=== PATIENT | female | born 1995 | race American Indian/Alaskan Native ===

== ENCOUNTER 2017-04-14 07:19 | Emergency (ER) | payer SELFPAY ==
[2017-04-14 08:04] VITALS: BP 124/73
[2017-04-14 08:40] LABS: Basophils # (Auto) 0.1 K/mm3 (0.0-0.1); Basophils % (Auto) 1.4 % (0.0-1.8); Eosinophils # (Auto) 0.1 K/mm3 (0.0-0.4); Eosinophils % (Auto) 1.3 % (0.0-4.3); Hematocrit 38.8 % (30.3-42.9); Hemoglobin 13.2 gm/dl (10.1-14.3); Lymphocytes # (Auto) 2.7 K/mm3 (1.2-5.4); Lymphocytes % (Auto) 32.4 % (13.4-35.0); Mean Corpuscular HGB Conc 34 % (30-34); Mean Corpuscular Hemoglobin 30 pg (28-32); Mean Corpuscular Volume 87 fl (79-97); Monocytes # (Auto) 0.5 K/mm3 (0.0-0.8); Platelet Count 344 K/mm3 (140-440); Red Blood Count 4.45 M/mm3 (3.65-5.03); Red Cell Distribution Width 13.3 % (13.2-15.2)
[2017-04-14 08:42] LABS: Alanine Aminotransferase 15 units/L (7-56); Albumin 4.5 g/dL (3.9-5); BUN/Creatinine Ratio 24; Blood Urea Nitrogen 12 mg/dL (7-17); Hemolysis Index 6; Lipase 29 units/L (13-60)
[2017-04-14 09:08] LABS: Bilirubin,Urine NEG (Negative); Blood,Urine NEG (Negative); Color,Urine Yellow (Yellow); Mucus,Urine 1+ /HPF; Nitrite,Urine NEG (Negative); Protein,Urine <15 mg/dL mg/dL (Negative); Urobilinogen,Urine < 2.0 mg/dL (<2.0)
[2017-04-14 09:12] LABS: HCG Qualitative,Urine Negative (Negative)
[2017-04-14] MEDS ORDERED: VIBRAMYCIN PO ONE (09:20)
[2017-04-14] MEDS ORDERED: TORADOL IV ONE (09:20)
--- NOTE | 2017-04-14 09:22 | Emergency Department Report ---
ED General Adult HPI - General Chief complaint: Abdominal Pain Stated complaint: ABD PAIN Time Seen by Provider: 04/14/17 09:02 Source: patient Mode of arrival: Ambulatory Limitations: No Limitations - History of Present Illness Initial comments: This is a 21-year-old female who was previously unknown to this provider, patient denies chronic medical conditions, presents to the ER with complaint of lower abdominal pain and cramping. No right lower quadrant pain, no fevers or chills, no urinary symptoms. Her pain does not have exacerbating or relieving factors. It does not radiate anywhere. -: Gradual, days(s) Location: abdomen Radiation: non-radiation Improves with: none Worsens with: none Associated Symptoms: denies: confusion, chest pain, cough, diaphoresis, fever/ chills, headaches, loss of appetite, malaise, nausea/vomiting, rash, shortness of breath, syncope, weakness - Related Data Previous Rx's Medication Instructions Recorded Last Taken Type Acetaminophen [Tylenol Arthritis] 650 mg PO Q6HR PRN #30 tablet.er 04/14/17 Unknown Rx Doxycycline [Vibramycin] 100 mg PO Q12HR #28 capsule 04/14/17 Unknown Rx Ibuprofen [Motrin] 600 mg PO Q8H PRN #30 tablet 04/14/17 Unknown Rx Ondansetron [Zofran Odt] 4 mg PO Q8HR PRN #20 tab.rapdis 04/14/17 Unknown Rx Allergies Allergy/AdvReac Type Severity Reaction Status Date / Time No Known Allergies Allergy Unverified 04/14/17 08:00 ED Review of Systems ROS: Stated complaint: ABD PAIN Other details as noted in HPI ED Past Medical Hx - Past Medical History Previous Medical History?: Yes Additional medical history: abnormal menses, Abd pain and distention - Surgical History Past Surgical History?: No - Social History Smoking Status: Never Smoker Substance Use Type: Non Opiate Pain - Medications Home Medications: Home Medications Medication Instructions Recorded Confirmed Last Taken Type Acetaminophen [Tylenol Arthritis] 650 mg PO Q6HR PRN #30 tablet.er 04/14/17 Unknown Rx Doxycycline [Vibramycin] 100 mg PO Q12HR #28 capsule 04/14/17 Unknown Rx Ibuprofen [Motrin] 600 mg PO Q8H PRN #30 tablet 04/14/17 Unknown Rx Ondansetron [Zofran Odt] 4 mg PO Q8HR PRN #20 tab.rapdis 04/14/17 Unknown Rx ED Physical Exam - General Limitations: No Limitations General appearance: alert, in no apparent distress - Head Head exam: Present: atraumatic, normocephalic - Eye Eye exam: Present: normal appearance, EOMI. Absent: nystagmus - ENT ENT exam: Present: normal exam, normal orophraynx, mucous membranes moist, normal external ear exam - Neck Neck exam: Present: normal inspection, full ROM - Respiratory Respiratory exam: Present: normal lung sounds bilaterally. Absent: respiratory distress - Cardiovascular Cardiovascular Exam: Present: regular rate, normal rhythm, normal heart sounds. Absent: systolic murmur, diastolic murmur, rubs, gallop - GI/Abdominal GI/Abdominal exam: Present: soft, normal bowel sounds. Absent: distended, tenderness, guarding, rebound, rigid, pulsatile mass - External exam: Present: normal external exam Speculum exam: Present: normal speculum exam. Absent: cervical discharge, vaginal bleeding Bi-manual exam: Present: normal bi-manual exam, other (escorted by nurse Steffen Kebede). Absent: cervical motion tendernes, adnexal tenderness, adnexal mass, uterine enlargement, uterine tenderness - Extremities Exam Extremities exam: Present: normal inspection, full ROM, normal capillary refill. Absent: tenderness, pedal edema, joint swelling, calf tenderness - Back Exam Back exam: Present: normal inspection, full ROM. Absent: tenderness, CVA tenderness (R), paraspinal tenderness, vertebral tenderness - Neurological Exam Neurological exam: Present: alert, oriented X3, CN II-XII intact, normal gait, other (Extraocular movements intact. Tongue midline. No facial droop. Facial sensation intact to light touch in the V1, V2, V3 distribution bilaterally. 5 and 5 strength in 4 extremities.. Sensation is intact to light touch in 4 extremities.). Absent: motor sensory deficit - Psychiatric Psychiatric exam: Present: normal affect, normal mood - Skin Skin exam: Present: warm, dry, intact, normal color. Absent: rash ED Course Vital Signs 04/14/17 04/14/17 08:00 10:43 Temperature 98.2 F Pulse Rate 71 Respiratory 20 20 Rate Blood Pressure 124/73 O2 Sat by Pulse 100 Oximetry ED Medical Decision Making - Lab Data Result diagrams: 04/14/17 08:10 04/14/17 08:10 Vital Signs 04/14/17 04/14/17 08:00 10:43 Temperature 98.2 F Pulse Rate 71 Respiratory 20 20 Rate Blood Pressure 124/73 O2 Sat by Pulse 100 Oximetry Labs 04/14/17 04/14/17 04/14/17 08:10 08:10 08:11 WBC 8.2 RBC 4.45 Hgb 13.2 Hct 38.8 MCV 87 MCH 30 MCHC 34 RDW 13.3 Plt Count 344 Lymph % (Auto) 32.4 [place] % (Auto) 6.0 Eos % (Auto) 1.3 Baso % (Auto) 1.4 Lymph # 2.7 [place] # 0.5 Eos # 0.1 Baso # 0.1 Seg Neutrophils % 58.9 Seg Neutrophils # 4.8 Sodium 139 Potassium 4.0 Chloride 101.0 Carbon Dioxide 25 Anion Gap 17 BUN 12 Creatinine 0.5 L Estimated GFR > 60 BUN/Creatinine Ratio 24 Glucose 87 Calcium 9.0 Total Bilirubin 0.30 AST 17 ALT 15 Alkaline Phosphatase 52 Total Protein 8.0 Albumin 4.5 Albumin/Globulin Ratio 1.3 Lipase 29 Urine Color Yellow Urine Turbidity Cloudy Urine pH 5.0 Ur Specific [place] 1.031 H Urine Protein <15 mg/dl Urine Glucose (UA) >=500 Urine Ketones 20 Urine Blood Neg Urine Nitrite Neg Urine Bilirubin Neg Urine Urobilinogen < 2.0 Ur Leukocyte Esterase Tr Urine WBC (Auto) 22.0 H Urine RBC (Auto) 1.0 U Epithel Cells (Auto) 6.0 Urine Mucus 1+ Urine HCG, Qual Negative - Radiology Data Radiology results: report reviewed, image reviewed Referring Physician: NICK COLON Patient Name: BEN DEVRIES Date of : 1995 Sex: Female Report Date: 2017-04-14 Report Status: Finalized Findings [facility] [address] [place] [address] Ultrasound Report Signed Patient: BEN DEVRIES MR#: [id number] : 1995 Acct:[id number] Age/Sex: 21 / F ADM Date: 04/14/17 Loc: ED Attending Dr: Ordering Physician: NICK COLON MD Date of Service: 04/14/17 Procedure(s): US pelvis duplex doppler comp Accession Number(s): [id number] cc: NICK COLON MD ULTRASOUND PELVIS DUPLEX DOPPLER COMPLETE ULTRASOUND TRANSVAGINAL HISTORY: Pelvic pain. COMPARISON: None. TECHNIQUE: Transabdominal and transvaginal ultrasound with color doppler interrogation. FINDINGS: Uterus: The uterus is retroflexed and measures 6.7 x 3.6 x 4.2 cm. No uterine mass or fibroid disease. Endometrium: Homogeneous. 11 mm. Right ovary: 3.5 x 1.7 x 3.8 cm. Normal follicles are identified. Left ovary: 3.7 x 1.6 x 3.1 cm. Normal follicles are identified. Spectral waveforms demonstrate arterial flow to both ovaries. There is a mild degree of fluid in the cul-de-sac which is probably physiologic. IMPRESSION: Unremarkable transabdominal and transvaginal pelvic ultrasounds. Small pelvic ascites. Transcribed By: TTR Dictated By: ADRIANA ROBB JR, MD Electronically Authenticated By: ADRIANA ROBB JR, MD Signed Date/Time: 04/14/17 1013 DD/ 1011 TD/TT: 04/14/17 1013 - Medical Decision Making Differential diagnosis, including but not limited to: Pelvic inflammatory disease, constipation, urinary tract infection Assessment and plan: 21-year-old female with a complaint of bilateral lower abdominal cramping, poorly defecating normally, passing gas normally, I appreciate that the patient has no cervical motion tenderness or adnexal tenderness, and she does not endorse irritative or obstructive urinary symptoms. Her urinalysis demonstrates trace leukocyte esterase, and 22 white blood cells without significant bacteria, this may suggest a chlamydia cystitis. The patient is afebrile with reassuring vital signs, and has no right lower quadrant tenderness, rebound or guarding. Her ultrasound did not demonstrate any significant gynecologic disease that would require emergent surgical intervention. The patient will be treated empirically for chlamydia cystitis and pelvic inflammatory disease. Return precautions are reviewed. Critical care attestation.: If time is entered above; I have spent that time in minutes in the direct care of this critically ill patient, excluding procedure time. ED Disposition Clinical Impression: Lower abdominal pain Disposition: - TO HOME OR SELFCARE Is pt being admited?: No Does the pt Need Aspirin: No Condition: Stable Instructions: Pelvic Inflammatory Disease (ED) Additional Instructions: As we discussed, your laboratory studies appeared to be within normal limits. Urinalysis suggested chlamydia infection You are not . The addition, your pelvic ultrasound was within normal limits. Given all this, you'll be treated empirically for disease called pelvic inflammatory disease. We typically treat young females with unexplained lower abdominal pain to protect your ability to have children safely in the future. Cultures were sent today, and results will be available next 3-5 days. Please have your primary care doctor call the medical records department to obtain your culture results. Take the antibiotic therapy as directed. Take the nausea medication and pain medication as directed. I recommend outpatient testing for sexually transmitted diseases, including hepatitis, syphilis and HIV. I also recommend that you abstain from sexual activity until you have completed her antibiotic therapy, a physician states that it is safe for you to resume sexual activity, and any partners that you have been sexually active with have been tested/treated/evaluated for sexual transmitted diseases. Please follow-up with physician within 3-5 days. I recommend that you return to the ER right away with worsening pain, migration of pain, intractable nausea/vomiting, inability tolerate liquid feeds. Prescriptions: Acetaminophen [Tylenol Arthritis] 650 mg PO Q6HR PRN #30 tablet.er PRN Reason: Pain Doxycycline [Vibramycin] 100 mg PO Q12HR #28 capsule Ibuprofen [Motrin] 600 mg PO Q8H PRN #30 tablet PRN Reason: Pain Ondansetron [Zofran Odt] 4 mg PO Q8HR PRN #20 tab.rapdis PRN Reason: Nausea Referrals: [facility] [Primary Care Provider] - 3-5 Days [facility] [Provider Group] - 3-5 Days [facility] [Provider Group] - 3-5 Days [facility] [Provider Group] - 3-5 Days [facility] Days
[2017-04-14] MEDS ORDERED: cefTRIAXone 0.25 GM in NACL 0.9% 20 ML IV SCH (09:30)
--- NOTE | 2017-04-14 10:18 | Ultrasound Report ---
ULTRASOUND PELVIS DUPLEX DOPPLER COMPLETE ULTRASOUND TRANSVAGINAL HISTORY: Pelvic pain. COMPARISON: None. TECHNIQUE: Transabdominal and transvaginal ultrasound with color doppler interrogation. FINDINGS: Uterus: The uterus is retroflexed and measures 6.7 x 3.6 x 4.2 cm. No uterine mass or fibroid disease. Endometrium: Homogeneous. 11 mm. Right ovary: 3.5 x 1.7 x 3.8 cm. Normal follicles are identified. Left ovary: 3.7 x 1.6 x 3.1 cm. Normal follicles are identified. Spectral waveforms demonstrate arterial flow to both ovaries. There is a mild degree of fluid in the cul-de-sac which is probably physiologic. IMPRESSION: Unremarkable transabdominal and transvaginal pelvic ultrasounds. Small pelvic ascites.
== END 2017-04-14 11:27 | disposition home or self-care (01) ==
LOC: ED 07:19
DX: R10.30 Lower abdominal pain, unspecified (principal)
CPT/HCPCS: 36415; 76830; 80053; 81001; 81025; 83690; 85025; 87086; 87210; 87591; 93975; 96374; 96375; 99285; J0696; J1885

== ENCOUNTER 2017-06-16 17:25 | Emergency (ER) | payer SELFPAY ==
[2017-06-16 19:02] LABS: Basophils # (Auto) 0.1 K/mm3 (0.0-0.1); Basophils % (Auto) 0.7 % (0.0-1.8); Eosinophils # (Auto) 0.1 K/mm3 (0.0-0.4); Eosinophils % (Auto) 0.4 % (0.0-4.3); Hematocrit 39.9 % (30.3-42.9); Lymphocytes # (Auto) 2.5 K/mm3 (1.2-5.4); Lymphocytes % (Auto) 20.8 % (13.4-35.0); Mean Corpuscular HGB Conc 33 % (30-34); Mean Corpuscular Hemoglobin 29 pg (28-32); Mean Corpuscular Volume 88 fl (79-97); Monocytes # (Auto) 0.7 K/mm3 (0.0-0.8); Monocytes % (Auto) 5.9 % (0.0-7.3); Platelet Count 373 K/mm3 (140-440); Red Blood Count 4.56 M/mm3 (3.65-5.03); Red Cell Distribution Width 13.4 % (13.2-15.2)
[2017-06-16 19:11] LABS: BUN/Creatinine Ratio 22; Blood Urea Nitrogen 11 mg/dL (7-17); Calcium 9.7 mg/dL (8.4-10.2); Hemolysis Index 7
[2017-06-16] MEDS ORDERED: TYLENOL ONE (19:15)
[2017-06-16] MEDS ORDERED: TYLENOL PO ONE (19:17)
[2017-06-16 20:17] LABS: HCG Qualitative,Urine Negative (Negative)
[2017-06-16 20:25] LABS: Bilirubin,Urine NEG (Negative); Blood,Urine NEG (Negative); Color,Urine Yellow (Yellow); Mucus,Urine 3+ /HPF; Protein,Urine <15 mg/dL mg/dL (Negative); Urobilinogen,Urine < 2.0 mg/dL (<2.0)
--- NOTE | 2017-06-16 21:05 | Emergency Department Report ---
- General Chief complaint: Rectal Pain Stated complaint: LOW BACK PAIN, TOP OF BUTT Time Seen by Provider: 06/16/17 20:48 Source: patient Mode of arrival: Ambulatory Limitations: No Limitations - History of Present Illness Initial comments: 21-year-old female past medical history pilonidal abscess presents with complaint of 2 days of pilonidal abscess recurrence. Patient denies fever chills difficulty defecating nausea vomiting or abdominal pain. States the pain is a top of her lateral left buttock. States she has a palpable bump there. Patient is awake alert and oriented 3 and states that her buttocks is aching. Accompanied by boyfriend at bedside complaint: abscess/boil Onset/Timin -: days(s) Location: buttocks (left upper) Severity: moderate Quality: aching Consistency: intermittent Improves with: none Context: none Treatments Prior to Arrival: none - Related Data Previous Rx's Medication Instructions Recorded Last Taken Type Acetaminophen [Tylenol Arthritis] 650 mg PO Q6HR PRN #30 tablet.er 04/14/17 Unknown Rx Doxycycline [Vibramycin] 100 mg PO Q12HR #28 capsule 04/14/17 Unknown Rx Ibuprofen [Motrin] 600 mg PO Q8H PRN #30 tablet 04/14/17 Unknown Rx Ondansetron [Zofran Odt] 4 mg PO Q8HR PRN #20 tab.rapdis 04/14/17 Unknown Rx Acetaminophen/Codeine [Tylenol 1 tab PO Q6H PRN #8 tab 06/16/17 Unknown Rx /Codeine # 3 tab] Cephalexin [Keflex] 500 mg PO BID #14 capsule 06/16/17 Unknown Rx Ibuprofen [Motrin] 600 mg PO Q8H PRN #20 tablet 06/16/17 Unknown Rx Sulfamethoxazole/Trimethoprim 1 each PO BID #14 tablet 06/16/17 Unknown Rx [Bactrim DS TAB] Allergies Allergy/AdvReac Type Severity Reaction Status Date / Time No Known Allergies Allergy Unverified 04/14/17 08:00 Abscess Boil HPI - HPI Chief Complaint: Rectal Pain Stated Complaint: LOW BACK PAIN, TOP OF BUTT Time Seen by Provider: 06/16/17 20:48 Home Medications: Previous Rx's Medication Instructions Recorded Last Taken Type Acetaminophen [Tylenol Arthritis] 650 mg PO Q6HR PRN #30 tablet.er 04/14/17 Unknown Rx Doxycycline [Vibramycin] 100 mg PO Q12HR #28 capsule 04/14/17 Unknown Rx Ibuprofen [Motrin] 600 mg PO Q8H PRN #30 tablet 04/14/17 Unknown Rx Ondansetron [Zofran Odt] 4 mg PO Q8HR PRN #20 tab.rapdis 04/14/17 Unknown Rx Acetaminophen/Codeine [Tylenol 1 tab PO Q6H PRN #8 tab 06/16/17 Unknown Rx /Codeine # 3 tab] Cephalexin [Keflex] 500 mg PO BID #14 capsule 06/16/17 Unknown Rx Ibuprofen [Motrin] 600 mg PO Q8H PRN #20 tablet 06/16/17 Unknown Rx Sulfamethoxazole/Trimethoprim 1 each PO BID #14 tablet 06/16/17 Unknown Rx [Bactrim DS TAB] Allergies/Adverse Reactions: Allergies Allergy/AdvReac Type Severity Reaction Status Date / Time No Known Allergies Allergy Unverified 04/14/17 08:00 ED Review of Systems ROS: Stated complaint: LOW BACK PAIN, TOP OF BUTT Other details as noted in HPI Constitutional: denies: chills, fever Eyes: denies: eye pain, eye discharge, vision change ENT: denies: ear pain, throat pain Respiratory: denies: cough, shortness of breath, wheezing Cardiovascular: denies: chest pain, palpitations Endocrine: no symptoms reported Gastrointestinal: denies: abdominal pain, nausea, diarrhea Genitourinary: denies: urgency, dysuria, discharge Musculoskeletal: denies: back pain, joint swelling, arthralgia Skin: as per HPI (abscess in pilonidal region). denies: rash, lesions Neurological: denies: headache, weakness, paresthesias Psychiatric: denies: anxiety, depression Hematological/Lymphatic: denies: easy bleeding, easy bruising ED Past Medical Hx - Past Medical History Additional medical history: abnormal menses, Abd pain and distention - Surgical History Past Surgical History?: No - Social History Smoking Status: Never Smoker - Medications Home Medications: Home Medications Medication Instructions Recorded Confirmed Last Taken Type Acetaminophen [Tylenol Arthritis] 650 mg PO Q6HR PRN #30 tablet.er 04/14/17 Unknown Rx Doxycycline [Vibramycin] 100 mg PO Q12HR #28 capsule 04/14/17 Unknown Rx Ibuprofen [Motrin] 600 mg PO Q8H PRN #30 tablet 04/14/17 Unknown Rx Ondansetron [Zofran Odt] 4 mg PO Q8HR PRN #20 tab.rapdis 04/14/17 Unknown Rx Acetaminophen/Codeine [Tylenol 1 tab PO Q6H PRN #8 tab 06/16/17 Unknown Rx /Codeine # 3 tab] Cephalexin [Keflex] 500 mg PO BID #14 capsule 06/16/17 Unknown Rx Ibuprofen [Motrin] 600 mg PO Q8H PRN #20 tablet 06/16/17 Unknown Rx Sulfamethoxazole/Trimethoprim 1 each PO BID #14 tablet 06/16/17 Unknown Rx [Bactrim DS TAB] ED Physical Exam - General Limitations: No Limitations General appearance: alert, in no apparent distress - Head Head exam: Present: atraumatic, normocephalic - Eye Eye exam: Present: normal appearance, PERRL, EOMI - ENT ENT exam: Present: mucous membranes moist - Neck Neck exam: Present: normal inspection - Respiratory Respiratory exam: Present: normal lung sounds bilaterally. Absent: respiratory distress - Cardiovascular Cardiovascular Exam: Present: regular rate, normal rhythm. Absent: systolic murmur, diastolic murmur, rubs, gallop - GI/Abdominal GI/Abdominal exam: Present: soft, normal bowel sounds - Extremities Exam Extremities exam: Present: normal inspection - Back Exam Back exam: Present: normal inspection - Neurological Exam Neurological exam: Present: alert, oriented X3, CN II-XII intact, normal gait - Psychiatric Psychiatric exam: Present: normal affect, normal mood - Skin Skin exam: Present: warm, dry, intact, normal color. Absent: rash ED Course Vital Signs 06/16/17 06/16/17 18:01 19:18 Temperature 98.9 F Pulse Rate 88 Respiratory 18 18 Rate Blood Pressure 116/80 - I & D Buttocks Type of Procedure: Simple Site: left upper buttock Blade Size: 11 I & D Procedure: betadine prep, gauze wick placed (4 inches of 1/2 inch iodoform gauze) Progress: Area infiltrated with lidocaine 2% without epinephrine. 2 stab incisions made adjacent to pilonidal region and left upper buttock. Moderate amount of pus drainage from both sites. Significant decompression of abscess. Wound culture collected and sent. Procedure tolerated well with minimal bleeding. Law with gauze afterward. ED Medical Decision Making - Lab Data Result diagrams: 06/16/17 18:39 06/16/17 18:39 - Medical Decision Making A/P: Left upper pilonidal/buttock abscess 1-significant decompression of abscess via incision and drainage, wound culture sent 2-Bactrim and Keflex twice a day 7 days, Motrin 800 when necessary, Tylenol No. 3 when necessary 3-I instructed patient to remove iodoform gauze within 12-24 hours or to return to the ED for removal 4- patient instructed to return to the ED if any fevers chills worsened buttock pain or swelling nausea or vomiting or difficulty defecating. Patient stated she understood my instructions. Vital signs stable before discharge Critical care attestation.: If time is entered above; I have spent that time in minutes in the direct care of this critically ill patient, excluding procedure time. ED Disposition Clinical Impression: Pilonidal abscess, Left buttock pain Disposition: TO HOME OR SELFCARE Is pt being admited?: No Does the pt Need Aspirin: No Condition: Stable Instructions: Abscess Incision and Drainage (ED), Abscess (ED) Prescriptions: Acetaminophen/Codeine [Tylenol /Codeine # 3 tab] 1 tab PO Q6H PRN #8 tab PRN Reason: Pain Cephalexin [Keflex] 500 mg PO BID #14 capsule Ibuprofen [Motrin] 600 mg PO Q8H PRN #20 tablet PRN Reason: Pain Sulfamethoxazole/Trimethoprim [Bactrim DS TAB] 1 each PO BID #14 tablet Referrals: [facility] [Outside] - 3-5 Days [facility] [Outside] - 3-5 Days Forms: Accompanied Note, Work/School Release Form(ED) Time of Disposition: 21:51
[2017-06-16] MEDS ORDERED: XYLOCAINE 1% 20 mL INFILTRATI ONE (21:08)
[2017-06-16] MEDS ORDERED: NORCO 5/325 PO ONE (22:02)
[2017-06-16 22:48] VITALS: BP 126/86
== END 2017-06-16 22:48 | disposition home or self-care (01) ==
LOC: ED 17:25
DX: L05.01 Pilonidal cyst with abscess (principal)
CPT/HCPCS: 36415; 80048; 81001; 81025; 84702; 85025; 87086; 87116; 99283